=== PATIENT | female | born 1970 | race Two or more races ===

== ENCOUNTER 2022-05-31 09:34 | Emergency (ER) | payer OTHER ==
[~2022-05-31] VITALS: Ht 170.2 cm; Wt 127.0 kg
[~2022-05-31 09:34] MED LIST: QVAR7.3 G1 IH; XOPENEX HFA15 GM IH
[2022-05-31] MEDS ORDERED: COZAAR50 MG PO (09:48)
[2022-05-31] MEDS ORDERED: LOSARTAN POTASS50 MG PO (11:05)
== END 2022-05-31 13:17 | disposition home or self-care (01) ==
LOC: ER 09:34
DX: R51.9 Headache, unspecified (principal); R11.0 Nausea; R11.10 Vomiting, unspecified; I10 Essential (primary) hypertension; Z20.822 Contact with and (suspected) exposure to COVID-19

== ENCOUNTER 2023-11-13 05:58 | Emergency (ER) | payer OTHER ==
[~2023-11-13] VITALS: Ht 170.2 cm; Wt 126.6 kg
[~2023-11-13 05:58] MED LIST changes: +COZAAR50 MG PO; +LOSARTAN POTASS50 MG PO
[2023-11-13] MEDS ORDERED: IRBESARTAN300 MG PO (06:04)
[2023-11-13] MEDS ORDERED: ORPHENADRINE CITRATE 30 MG/ML AMPUL IM STA (07:07)
[2023-11-13] MEDS ORDERED: KETOROLAC TROMETHAMINE 60 MG VIAL IM STA (07:07)
[2023-11-13] MEDS ORDERED: ORPHENADRINE CITRATE 30 MG/ML AMPUL ONE (07:14)
[2023-11-13] MEDS ORDERED: KETOROLAC TROMETHAMINE 60 MG VIAL IM ONE (07:14)
== END 2023-11-13 10:49 | disposition home or self-care (01) ==
LOC: ER 06:00
DX: S00.33XA Contusion of nose, initial encounter (principal); W07.XXXA Fall from chair, initial encounter; Y93.89 Activity, other specified; Y92.69 Other specified industrial and construction area as the place of occurrence of the external cause; Y99.8 Other external cause status; M54.9 Dorsalgia, unspecified; M43.6 Torticollis

== ENCOUNTER 2023-11-16 09:48 | Emergency (ER) | payer OTHER ==
[~2023-11-16] VITALS: Ht 170.2 cm; Wt 126.6 kg
[~2023-11-16 09:48] MED LIST changes: +IRBESARTAN300 MG PO
[2023-11-16 12:46] LABS: PARTIAL THROMBOPLASTIN TIME 31.7 SECONDS (22.0-34.0); PROTHROMBIN TIME 10.9 SECONDS (9.0-11.5)
== END 2023-11-16 13:09 | disposition home or self-care (01) ==
LOC: ER 09:50
PROVIDERS: General Practice
DX: R31.9 Hematuria, unspecified (principal); R04.0 Epistaxis; T14.8XXA Other injury of unspecified body region, initial encounter

== ENCOUNTER 2024-06-03 06:19 | Outpatient (CLI) | payer OTHER ==
[2024-06-03 07:14] LABS: URINE APPEARANCE Clear; URINE BILIRRUBIN Negative (NEGATIVE); URINE BLOOD Negative; URINE COLOR Yellow; URINE GLUCOSE Negative (NEGATIVE); URINE KETONE Negative (NEGATIVE); URINE LEUKOCYTE Negative; URINE NITRATE Negative; URINE PROTEIN Negative (NEGATIVE); URINE UROBILINOGEN 0.2 E.U./dl
[2024-06-03 07:18] LABS: URINE BACTERIA 52.6 uL (0.0-1933); URINE EPITHELIAL CELLS 3.6 uL (0.0-38.8); URINE RBC 4.1 uL (0.0-20.8); URINE WBC 3.3 uL (0.0-23.2)
[2024-06-03 07:46] LABS: URINE CAST 0.14 uL (0.0-1.40)
[2024-06-03 07:49] LABS: HEMATOCRIT 39.5 % (36.0-45.00); HEMOGLOBIN 13.2 g/dL (12.0-15.00); MEAN CELL VOLUME 85.4 fL (80.00-100.00); MEAN CORPUSCULAR HEMOGLOBIN 28.5 pg (27.00-32.0); MEAN CORPUSCULAR HGB CONC 33.3 g/dl (32.0-36.0); PLATELET COUNT 203 K/uL (150-450); RED BLOOD COUNT 4.63 M/uL (4.00-6.00); RED CELL DISTRIBUTION WIDTH 15.8 % (11.5-14.5)
[2024-06-03 08:05] LABS: ALBUMIN 3.7 gm/dL (3.4-5.0); BILIRUBIN TOTAL 0.56 mg/dL (0.3-1.2); CALCIUM 9.7 mg/dL (8.5-10.1); CHOL HDL RATIO 2.1 (0-5.0); CREATININE SERUM 0.6 mg/dL (0.55-1.02); GFR 104.18; POTASSIUM 5.22 mEq/L (3.5-5.1); TOTAL PROTEIN 7.7 gm/dL (6.4-8.2); TSH 2.08 uIU/mL (0.358-3.74)
== END 2024-06-03 06:28 | disposition home or self-care (01) ==
LOC: LAB 06:19
DX: R00.2 Palpitations (principal); I11.9 Hypertensive heart disease without heart failure; E11.9 Type 2 diabetes mellitus without complications; E78.2 Mixed hyperlipidemia

== ENCOUNTER → 2024-08-07 06:07 | Outpatient (CLI) | payer OTHER ==
[2024-08-07 07:33] LABS: PH,URINE 5.5 (5.0-8.0); URINE APPEARANCE Clear; URINE BILIRRUBIN Negative (NEGATIVE); URINE BLOOD Negative; URINE COLOR Yellow; URINE GLUCOSE Negative (NEGATIVE); URINE KETONE Negative (NEGATIVE); URINE LEUKOCYTE Negative; URINE NITRATE Negative; URINE PROTEIN Negative (NEGATIVE); URINE UROBILINOGEN 0.2 E.U./dl
[2024-08-07 07:37] LABS: URINE BACTERIA 107.6 uL (0.0-1933)
[2024-08-07 07:41] LABS: URINE EPITHELIAL CELLS 0.6 uL (0.0-38.8); URINE RBC 1.7 uL (0.0-20.8)
[2024-08-07 07:43] LABS: BASO % 0.7 % (0.1-1.2); EOS # 0.57 (0.04-0.54); EOS % 6.3 % (0.7-7.0); HEMATOCRIT 41.1 % (34.1-44.9); LYMPH # 2.55 (1.18-3.74); LYMPH % 28.2 % (19.3-53.1); MEAN CORPUSCULAR HEMOGLOBIN 27.2 pg (25.6-32.2); MONO % 7.7 % (4.7-12.5); NEUT # 5.16 (1.56-6.13); PLATELET COUNT 265 K/uL (163-369); RED BLOOD COUNT 4.78 M/uL (3.93-5.22)
[2024-08-07 08:35] LABS: ALBUMIN 3.8 gm/dL (3.4-5.0); BILIRUBIN TOTAL 0.45 mg/dL (0.3-1.2); CALCIUM 9.7 mg/dL (8.5-10.1); CHOL HDL RATIO 2.1 (0-5.0); CREATININE SERUM 0.58 mg/dL (0.55-1.02); GFR 108.33; GLOBULINA 4.1 G/DL (2.4-3.5); POTASSIUM 4.84 mEq/L (3.5-5.1); TOTAL PROTEIN 7.9 gm/dL (6.4-8.2); TSH 1.46 uIU/mL (0.358-3.74)
== END | disposition home or self-care (01) ==
LOC: LAB 06:07
PROVIDERS: ATTEND Internal Medicine Cardiovascular Disease
DX: R00.2 Palpitations (principal); I11.9 Hypertensive heart disease without heart failure; E11.9 Type 2 diabetes mellitus without complications; E78.2 Mixed hyperlipidemia

== ENCOUNTER 2024-12-17 06:10 | Emergency (ER) | payer OTHER ==
[~2024-12-17] VITALS: Ht 170.2 cm; Wt 127.0 kg
[2024-12-17] MEDS ORDERED: FAMOTIDINE/PF 20 MG/2 ML VIAL IV ONE (08:00)
[2024-12-17] MEDS ORDERED: ONDANSETRON HCL 2 MG/ML VIAL IV ONE (08:00)
[2024-12-17] MEDS ORDERED: 0.9 % SODIUM CHLORIDE 500 ML IV ONE (08:00)
[2024-12-17] MEDS ORDERED: FAMOTIDINE/PF 20 MG/2 ML VIAL ONE (08:36)
[2024-12-17] MEDS ORDERED: ONDANSETRON HCL 2 MG/ML VIAL ONE (08:36)
[2024-12-17 09:06] LABS: BASO % 0.4 % (0.1-1.2); EOS # 0.32 (0.04-0.54); EOS % 3.0 % (0.7-7.0); LYMPH # 1.16 (1.18-3.74); LYMPH % 11.0 % (19.3-53.1); MEAN PLATELET VOLUME 12.20 fl (9.4-12.4); MONO # 0.55 (0.24-0.82); MONO % 5.2 % (4.7-12.5); NEUT # 8.48 (1.56-6.13); NEUT % 80.1 % (34.0-71.1); RED CELL DISTRIBUTION WIDTH 16.1 % (11.6-14.4)
[2024-12-17 09:40] LABS: ALT/SGPT 24.0 U/L (12-78); AST/SGOT 14.0 U/L (15-37); BILIRUBIN TOTAL 0.6 mg/dL (0.3-1.2); BILIRUBIN,CONJUGATED 0.17 mg/dL (0.0-0.2); BUN CREA RATIO 31.0 (7.0-25.0); CREATININE SERUM 0.64 mg/dL (0.55-1.02); GFR 96.34; GLUCOSE FASTING 112.0 mg/dL (65-100); OSMOLALITY SERUM 285.0 MOSM/KG (275-295)
== END 2024-12-17 11:41 | disposition home or self-care (01) ==
LOC: ER 06:10
PROVIDERS: Emergency Medicine
DX: K52.89 Other specified noninfective gastroenteritis and colitis (principal); I10 Essential (primary) hypertension

== ENCOUNTER 2025-01-01 13:34 | Outpatient (CLI) | payer OTHER | END 2025-01-01 13:41 | disposition home or self-care (01) | LOC: MAMO-SONO 13:34 | PROVIDERS: ATTEND Surgery | DX: N60.11 Diffuse cystic mastopathy of right breast (principal); N60.12 Diffuse cystic mastopathy of left breast ==